=== PATIENT | female | born 1955 | race Caucasian/White ===

== ENCOUNTER 2019-01-07 21:42 | Emergency (ER) | payer BC ==
[~2019-01-07] VITALS: Ht 162.6 cm; Wt 95.3 kg
[2019-01-07] MEDS ORDERED: NARATRIPTAN HCL1 MG ORAL (21:48)
--- NOTE | 2019-01-07 22:00 | NUR ---
ED Nurse Note: Patient walked into ED c/o laceration on the left finger sustained by a knife. 04/06. no active bleeding noted. pt pulse and sensation noted in affected extremity. pt cap refill is less than 3.
[2019-01-07 22:11] VITALS: BP 157/83
[2019-01-07] MEDS ORDERED: Bupivacaine 0.5% Inj 30 ml vial INJ ONE (22:15)
[2019-01-07] MEDS ORDERED: BACITRACIN ZIN1 EACH TOPIC (22:30)
[2019-01-07] MEDS ORDERED: MAPAP500 M2 PO (22:30)
[2019-01-07] MEDS ORDERED: Bacitracin Oint UD TOPIC ONE (22:34)
[2019-01-07 22:35] VITALS: BP 150/81
--- NOTE | 2019-01-07 22:36 | NUR ---
ER DISCHARGE NOTE: Patient is cleared to be discharged per ERMD, pt is aox4, on room air, with stable vital signs. pt was given dc and prescription instructions, pt was able to verbalize understanding, pt id band removed without complications. pt is able to ambulate with steady gait. pt took all belongings.
--- NOTE | 2019-01-08 06:27 | Emergency Room Report ---
History of Present Illness General Chief Complaint: Laceration Source: Patient Present Illness HPI Patient is a 63-year-old female who presented after injury to her left hand. Patient reportedly had been attempting to remove a brownie from a glass container. Patient injured her hand with a kitchen knife. She is unsure of her last tetanus vaccine. She denies any numbness to her fingers. She is right -hand dominant. She denies other locations of injury. Allergies: Coded Allergies: No Known Allergies (Unverified , 01/07/19) Patient History Past Medical History: see triage record Last Menstrual Period: n/a Now: No : 1 Para: 1 Reviewed Nursing Documentation: PMH: Agreed; PSxH: Agreed Nursing Documentation-PMH Past Medical History: No History, Except For Review of Systems All Other Systems: negative except mentioned in HPI Physical Exam Vital Signs Date Time Temp Pulse Resp B/P (MAP) Pulse Ox O2 Delivery O2 Flow Rate FiO2 01/07/19 21:43 98.4 90 22 169/85 95 Room Air General Appearance: well appearing, no apparent distress, alert, GCS 15, obese Head: normocephalic, atraumatic ENT: hearing grossly normal, normal voice Neck: full range of motion, supple Respiratory: no respiratory distress, speaking full sentences Cardiovascular #1: normal inspection Gastrointestinal: normal inspection Musculoskeletal: normal inspection Neurologic: normal inspection, alert, oriented x3 Psychiatric: mood/affect normal Skin: laceration - finger 1 cm linear, no fb, no tendon involvement Procedures Laceration/Wound Repair Laceration/Wound Repair : Consent: Emergent Wound's Depth, Shape: linear Wound Length (cm): 1 Wound Explored: clean Betadine Prep?: Yes Anesthesia: 0.5% Sensorcaine Volume Anesthetic (ccs): 1 Wound Repaired With: sutures Suture Size/Type: 4:0 Number of Sutures: 3 Patient Tolerated: Well Medical Decision Making Diagnostic Impression: Primary Impression: Laceration ER Course Patient presented for laceration. Differential diagnoses included foreign body , nerve injury, arterial injury among others. Last Vital Signs Date Time Temp Pulse Resp B/P (MAP) Pulse Ox O2 Delivery O2 Flow Rate FiO2 01/07/19 22:35 98.4 72 22 150/81 95 Room Air Disposition: HOME, SELF-CARE Condition: Stable Scripts Acetaminophen (MAPAP) 500 Mg Capsule 500 MG PO Q4HR, #30 CAP Prov: Ismael Griffin MD 01/07/19 Bacitracin Zinc* (BACITRACIN ZINC*) 1 Each Packet 1 APPLIC TOPIC THREE TIMES A DAY, #20 PACKET Prov: Ismael Griffin MD 01/07/19 Referrals: NON PHYSICIAN (PCP) Patient Instructions: Laceration Care, Adult Additional Instructions: Suture removal in 10-14 days. Have wound checked in 3-4 days with your doctor. Return if any problems Ismael Griffin MD Jan 08, 2019 06:27
== END 2019-01-07 22:30 | disposition home or self-care (01) ==
LOC: EMR 22:03
DX: S61.412A Laceration without foreign body of left hand, initial encounter (principal); W26.0XXA Contact with knife, initial encounter; Y92.89 Other specified places as the place of occurrence of the external cause
CPT/HCPCS: 12001; 99283; J3490